=== PATIENT | male | born 1945 | race Caucasian/White ===

== ENCOUNTER 2017-04-28 20:11 | Emergency (ER) | payer MEDICARE ==
[2017-04-28 20:35] LABS: BASOPHIL 0.3 % (0-2); EOSINOPHIL 2.7 % (0-7); HCT 37.7 % (42.0-52.0); HGB 11.9 g/dl (13.2-18.0); LYMPHOCYTE 15.9 % (15-48); MCHC 31.6 g/dL (32.0-36.0); MCV 82.3 fL (78.0-100.0); MONOCYTE 14.1 % (0-12); PLT 270 K/uL (150-400); RBC 4.58 M/uL (4.70-6.00); RDW 14.9 % (11.5-14.0); WBC 12.7 K/uL (4.0-10.5)
[2017-04-28 20:39] LABS: INR 1.05 (0.9-1.2); PROTHROMBIN TIME 12.8 SECONDS (11.4-13.2); PTT 27.3 SECONDS (24.3-32.1)
[2017-04-28 20:49] LABS: ALBUMIN 4.6 g/dL (3.4-4.8); GLOBULIN (CALCULATION) 2.9 g/dL (2.2-4.2); POTASSIUM 3.7 mmol/L (3.5-5.1); TOTAL PROTEIN 7.5 g/dL (6.4-8.3)
== END 2017-04-28 23:24 | disposition home or self-care (01) ==
LOC: FER 20:11
PROVIDERS: Internal Medicine
DX: I48.91 Unspecified atrial fibrillation (principal); F17.210 Nicotine dependence, cigarettes, uncomplicated; Z79.84 Long term (current) use of oral hypoglycemic drugs; Z79.82 Long term (current) use of aspirin; Z79.899 Other long term (current) drug therapy
CPT/HCPCS: 36415; 71010; 80053; 83880; 84443; 85025; 85610; 85730; 93005